=== PATIENT | male | born 1960 | race Caucasian/White ===

== ENCOUNTER 2016-08-11 15:07 | Emergency (ER) | payer OTHER ==
--- NOTE | 2016-08-11 16:20 | ER NURSING DOCUMENTATION ---
Nurse's Notes [facility] Name:Raj Layton Age:56 yrs Sex:Male :1960 Arrival Date:08/11/2016 Time:15:07 BedPortable Radiology Private MD: Diagnosis:Bursitis;Tendonitis;Acute Myofascial Strain Presentation: 08/11 15:11 Acuity: NÉSTOR 3 sc1 15:16 Presenting complaint: Patient states: awoke this morning with pain in his right hip and sc1 feels like it is getting worse. Denies injuring himself. Transition of care: patient was not received from another setting of care. Notified ED Physician of patient's arrival and CC Dr. Roth notified. 15:16 Method Of Arrival: Private Vehicle sc1 Triage Assessment: 15:18 General: Appears in no apparent distress, well developed, well nourished, well groomed, sc1 Behavior is cooperative, pleasant. Pain: Complains of pain in right hip. Historical: - Allergies: No known drug Allergies; - Home Meds: 1. losartan-hydrochlorothiazide oral 2. Atenolol Oral - PMHx: None; - Ebola Screening: : Patient negative for fever greater than or equal to 101.5 degrees Fahrenheit, and additional compatible Ebola Virus Disease symptoms. Patient denies exposure to infectious person. Patient denies travel to an Ebola-affected area in the 21 days before illness onset. No symptoms or risks identified at this time. . - Immunization history: Flu Vaccine < 1 year. - Social history: Smoking status: Patient states was never smoker of tobacco. Patient uses alcohol only on a social basis. Patient/guardian denies using street drugs, IV drugs, marijuana. Screenin:20 Infectious Disease Risk None. Abuse screen: Denies threats or abuse. Nutritional sc1 screening: No deficits noted. Vital Signs: 15:19 BP 176 / 86; Pulse 69; Resp 16; Temp 98.3; Pulse Ox 91% on R/A; sc1 ED Course: 15:09 Patient arrived in ED. ama 15:11 Savanna Garcia, ALEX is Primary Nurse. sc1 15:12 Triage completed. sc1 15:12 Kodak Roth MD is Attending Physician. pa 15:20 Notified ED Physician of patient's arrival and chief complaint. Dr. Roth notified. Arm sc1 band placed on Bed in low position Call Light in Reach Gowned HOB Elevated. Administered Medications: No medications were administered Outcome: 15:57 Discharge ordered by . mak 16:20 Patient left the ED. pa1 08/12 17:10 Discharge F/U Call: Unable to reach: left voicemail: [email or web address] Signatures: Savanna Garcia RN RN pa1 Kodak Roth MD MD sc Strickland, Mary ms Averdick, Andrew, Shelbi Huffman 4
--- NOTE | 2016-08-11 16:20 | ER PHYSICIAN DOCUMENTATION ---
Physician Documentation [facility] Name:Raj Layton Age:56 yrs Sex:Male :1960 Arrival Date:08/11/2016 Time:15:07 BedPortable Radiology Private MD: Kodak Chua Disposition: 08/11/16 15:57 Discharged to Home/Self Care. Impression: Bursitis, Tendonitis, Acute Myofascial Strain. - Condition is Good. - Discharge Instructions: BURSITIS, TENDONITIS. - Prescriptions for Hydrocodone- Acetaminophen 5-325 mg Oral - take 1 tablet by ORAL route every 6 hours As needed; 30 tablet. - Medical Reconciliation form form. - Follow up: Private Physician; When: 1 week; Reason: Recheck today's complaints. - Problem is new. - Symptoms are unchanged. HPI: 08/11 15:54 This 56 yrs old Male presents to ER via Private Vehicle with complaints of sc Hip Pain - R. 15:54 The patient or guardian reports pain. that occurred at an unknown site, sustained from sc lifting or pulling, sports, unknown reason. The complaints affect the right hip. Onset: The symptom(s)/episode began/occurred yesterday. Modifying factors: The symptoms are alleviated by OTC meds, the symptoms are aggravated by any movement. Associated signs and symptoms: Loss of consciousness: the patient experienced no loss of consciousness. The patient has not experienced similar symptoms in the past. Historical: - Allergies: No known drug Allergies; - Home Meds: 1. losartan-hydrochlorothiazide oral 2. Atenolol Oral - PMHx: None; - Ebola Screening: : Patient negative for fever greater than or equal to 101.5 degrees Fahrenheit, and additional compatible Ebola Virus Disease symptoms. Patient denies exposure to infectious person. Patient denies travel to an Ebola-affected area in the 21 days before illness onset. No symptoms or risks identified at this time. . - Immunization history: Flu Vaccine < 1 year. - Social history: Smoking status: Patient states was never smoker of tobacco. Patient uses alcohol only on a social basis. Patient/guardian denies using street drugs, IV drugs, marijuana. ROS: 15:55 Constitutional: Negative for fever, chills, and weight loss. sc Eyes: Negative for injury, pain, redness, and discharge. Neck: Negative for injury, pain, and swelling. Cardiovascular: Negative for chest pain, palpitations, and edema. Respiratory: Negative for shortness of breath, cough, wheezing, and pleuritic chest pain. Abdomen/GI: Negative for abdominal pain, nausea, vomiting, diarrhea, and constipation. Back: Negative for injury and pain. Skin: Negative for injury, rash, and discoloration. Neuro: Negative for headache, weakness, numbness, tingling, and seizure. 15:55 Psych: Negative for depression, anxiety, suicide ideation, homicidal ideation, and sc hallucinations. 15:55 MS/extremity: Positive for injury or acute deformity, pain, tenderness. Exam: Constitutional: This is a well developed, well nourished patient who is awake, alert, and in no acute distress. Head/Face: Normocephalic, atraumatic. Eyes: Pupils equal round and reactive to light, extra-ocular motions intact. Lids and lashes normal. Conjunctiva and sclera are non-icteric and not injected. Cornea within normal limits. Periorbital areas with no swelling, redness, or edema. Neck: Trachea midline, no thyromegaly or masses palpated, and no cervical lymphadenopathy. Supple, full range of motion without nuchal rigidity, or vertebral point tenderness. No meningismus. 15:55 Skin: Warm, dry with normal turgor. Normal color with no rashes, no lesions, and no sc evidence of cellulitis. 15:55 Musculoskeletal/extremity: Extremities: grossly normal except: pain, tenderness, ROM: full active range of motion, full passive range of motion, Circulation is intact in all extremities. Sensation intact. Vital Signs: 15:19 BP 176 / 86; Pulse 69; Resp 16; Temp 98.3; Pulse Ox 91% on R/A; sc1 MDM: 15:12 Patient medically screened. sc 15:56 Differential diagnosis: hip fracture, femoral neck fracture, bursitis, arthritis, sc strain. Data reviewed: vital signs, nurses notes, and as a result, I will discharge patient. Counseling: I had a detailed discussion with the patient and/or guardian regarding: the historical points, exam findings, and any diagnostic results supporting the discharge/admit diagnosis, radiology results, the need for outpatient follow up, to return to the emergency department if symptoms worsen or persist or if there are any questions or concerns that arise at home. Medication response: The patient's symptoms have improved. 08/13 07:31 Order name: FEMUR; [address] [place] [id number] EDMS 08/11 15:54 Order name: Ice Packs; Complete Time: 16:00 ne Dispensed Medications: No medications were administered Signatures: Savanna Garcia RN RN sc1 Kodak Roth MD MD ne
--- NOTE | 2016-08-13 07:30 | RADIOLOGY REPORT ---
HISTORY: One day history of pain COMPARISON: None. FINDINGS: 4 views of the femur obtained. There is no fracture. There is no lytic or sclerotic lesion. There is no soft tissue swelling. There is normal alignment and mineralization. IMPRESSION: Normal x-rays of the femur. Final Electronic Signature: This report was electronically signed by Raj Greene MD on 08/13/2016 7:27 AM. [email or web address] /
== END 2016-08-11 16:20 | disposition home or self-care (01) ==
LOC: ER 15:07
DX: M71.551 Other bursitis, not elsewhere classified, right hip (principal); M76.9 Unspecified enthesopathy, lower limb, excluding foot; S76.011A Strain of muscle, fascia and tendon of right hip, initial encounter; X50.9XXA Other and unspecified overexertion or strenuous movements or postures, initial encounter; Z79.899 Other long term (current) drug therapy
CPT/HCPCS: 99281